=== PATIENT | female | born 1990 ===

== ENCOUNTER 2016-11-05 20:35 | Emergency (ER) | payer BC ==
[2016-11-05 20:42] VITALS: BP 120/69
--- NOTE | 2016-11-05 20:58 | UC ---
[facility] General HPI - HPI Summary HPI Summary: complaint of mosquito bite on her left knee that occurred today bite happened today and has a bright red ring around it several other bites on both of her legs doesn't itch and is not painful she was worried about lyme disease after looking up rashes on the internet - History of Current Complaint Chief Complaint: UCBiteInjury Stated Complaint: MOSQUITO BITE W RING AROUND IT Time Seen by Provider: 11/05/16 20:39 Hx Obtained From: Patient - Allergy/Home Medications Allergies/Adverse Reactions: Allergies Allergy/AdvReac Type Severity Reaction Status Date / Time Amoxicillin Allergy Unknown Verified 11/05/16 20:42 Reaction Details Clavulanic Acid Allergy Unknown Verified 11/05/16 20:42 [From Augmentin] Reaction Details PMH/Surg Hx/FS Hx/Imm Hx Previously Healthy: Yes - Surgical History Surgical History: None - Family History Known Family History: Negative: Cardiac Disease, Hypertension, Diabetes - Social History Occupation: Employed Full-time Lives: With Family Alcohol Use: Occasionally Substance Use Type: None Smoking Status (MU): Never Smoked Tobacco Review of Systems Constitutional: Negative Skin: Rash Eyes: Negative ENT: Negative Respiratory: Negative Cardiovascular: Negative Gastrointestinal: Negative Genitourinary: Negative Motor: Negative Neurovascular: Negative Musculoskeletal: Negative Neurological: Negative Psychological: Negative All Other Systems Reviewed And Are Negative: Yes Physical Exam Triage Information Reviewed: Yes Appearance: No Pain Distress, Well-Nourished Vital Signs: Initial Vital Signs Temp 98.9 F 11/05/16 20:38 Pulse 75 11/05/16 20:38 Resp 14 11/05/16 20:38 BP 120/69 11/05/16 20:38 Pulse Ox 100 11/05/16 20:38 Vital Signs Reviewed: Yes Eyes: Positive: Conjunctiva Clear ENT: Positive: Pharynx normal, TMs normal Respiratory: Positive: Lungs clear, Normal breath sounds, No respiratory distress, No accessory muscle use Cardiovascular: Positive: RRR, No Murmur, Pulses Normal, Brisk Capillary Refill Neurological: Positive: Alert Psychological Exam: Normal Skin: Positive: rashes - left knee with 1cm area of light erythema- no ring seen Course/Dx - Course Course Of Treatment: exam completed. rash appears to be mosquito bite. reviewed importance of checking for ticks after being in the [place] - Differential Dx - Multi-Symptom Provider Diagnoses: insect bite Discharge - Discharge Plan Condition: Stable Disposition: HOME Patient Education Materials: Insect Bite or Sting (ED), Tick Bite (ED) Referrals: Rosenda Valdez MD [Primary Care Provider] - Additional Instructions: Please review your discharge instructions. If your symptoms do not improve please call your primary care provider or return to urgent care.
== END 2016-11-05 21:10 | disposition home or self-care (01) ==
LOC: UCCORT 20:35
DX: S80.262A Insect bite (nonvenomous), left knee, initial encounter (principal); Z88.0 Allergy status to penicillin; W57.XXXA Bitten or stung by nonvenomous insect and other nonvenomous arthropods, initial encounter; Y92.9 Unspecified place or not applicable
CPT/HCPCS: 99211; G0463